=== PATIENT | female | born 1990 | race Native Hawaiian/Other Pacific Islander ===

== ENCOUNTER 2016-08-18 08:07 | Outpatient (CLI) | payer OTHER ==
[~2016-08-18 08:07] MED LIST: CELLCEPT500 MG PO; OMEP40CA PO; PLAQUENIL200 MG PO; PREDNISONE2.5 MG PO; VENL37.511 PO
[2016-08-18 10:46] LABS: PLATELET COUNT 171 K/uL (152-353)
[2016-08-18 10:54] LABS: POTASSIUM 3.5 mmol/L (3.6-5.2); SODIUM 135 mmol/L (136-145)
== END 2016-08-18 09:07 | disposition home or self-care (01) ==
LOC: LAB 08:07
PROVIDERS: Internal Medicine Rheumatology
DX: M32.19 Other organ or system involvement in systemic lupus erythematosus (principal); Z79.899 Other long term (current) drug therapy; Z51.81 Encounter for therapeutic drug level monitoring
CPT/HCPCS: 36415; 80053; 81000; 85027; 86160; 86225